=== PATIENT | male | born 1985 | race Caucasian/White ===

== ENCOUNTER 2017-12-28 22:23 | Emergency (ER) | payer MEDICAID ==
[2017-12-28 22:53] LABS: BASO # 0.1 K/uL (0.0-0.2); BASO % 0.7 % (0.0-2.0); EOS # 0.1 K/uL (0.0-0.7); EOS % 0.9 % (0.0-4.0); HEMOGLOBIN 15.8 g/dL (12.0-18.0); LYMPH # 2.3 K/uL (1.0-4.3); LYMPH % 15.2 % (20.0-40.0); MEAN CORPUSCULAR HEMOGLOBIN 29.9 pg (27.0-31.0); MEAN CORPUSCULAR HGB CONC 34.2 g/dL (33.0-37.0); MEAN PLATELET VOLUME 9.5 fL (7.2-11.7); MONO # 0.8 K/uL (0.0-0.8); MONO % 5.3 % (0.0-10.0); NEUT # 11.6 K/uL (1.8-7.0); NEUT % 77.9 % (50.0-75.0); RBC 5.29 Mil/uL (4.40-5.90); RED CELL DISTRIBUTION WIDTH 14.1 % (11.5-14.5)
[2017-12-28 22:54] LABS: WHITE BLOOD COUNT 14.9 K/uL (4.8-10.8)
[2017-12-28 22:55] LABS: MEAN CELL VOLUME 87.5 fL (80.0-94.0)
[2017-12-28 23:05] LABS: ALB/GLOB RATIO 1.1 (1.0-2.1); ALBUMIN 4.5 g/dL (3.5-5.0); ALT/SGPT 321 U/L (21-72); AST/SGOT 137 U/L (17-59); BLOOD UREA NITROGEN 14 mg/dL (9-20); CALCIUM 9.6 mg/dl (8.6-10.4); GFR AFRICAN-AMERICAN > 60; GFR NON-AFRICAN AMERICAN > 60
--- NOTE | 2017-12-28 23:06 | C.PDOC ---
History Of Present Illness 32 year old male, whose PMHx includes seizure disorder, presents to the ED for evaluation after he had two seizure episodes at around 1900 today. Patient states he normally has seizures around once a month. Patient takes 1000mg Keppra BID; he took his most recent dost at 0600 today and has not yet taken his evening dose. Patient states his doctor is in [place] and his seizures have been controlled since he adjusted to the Keppra. His last seizure was 3-4 weeks ago. Patient notes he felt an aura prior to the episodes and was alert and oriented right afterwards. Patient denies tongue bite, urinary/bowel incontinence, extremity numbness/weakness, or any injuries at this time. Time Seen by Provider: 12/28/17 22:41 Chief Complaint (Nursing): Seizure History Per: Patient History/Exam Limitations: no limitations Recent Seizure Activity Began: Hours Ago: (around 4) Number Of Seizures: Multiple (two) Length Of Seizures (Duration): Unknown Precipitating Factor(s): Missed Dose Of Anti-seizure Medication Additional History Per: Patient Past Medical History Reviewed: Historical Data, Nursing Documentation, Vital Signs Vital Signs: Last Vital Signs Temp 98.3 F 12/28/17 22:30 Pulse 82 12/28/17 23:34 Resp 15 12/28/17 23:34 BP 132/85 12/28/17 23:34 Pulse Ox 98 12/28/17 23:34 - Medical History PMH: HTN, Seizures Surgical History: No Surg Hx Family History: States: Diabetes - Social History Hx Tobacco Use: Yes Hx Alcohol Use: No (stopped) Hx Substance Use: No - Immunization History Hx Tetanus Toxoid Vaccination: No Hx Influenza Vaccination: No Hx Pneumococcal Vaccination: No Review Of Systems ENT: Negative for: Other (tongue bite ) Genitourinary: Negative for: Incontinence Neurological: Positive for: Seizures. Negative for: Weakness, Numbness Physical Exam - Physical Exam Appears: Non-toxic, No Acute Distress Skin: Normal Color, Warm, Dry Head: Atraumatic, Normacephalic Eye(s): bilateral: Normal Inspection Oral Mucosa: Moist Neck: Supple Chest: Symmetrical, No Deformity, No Tenderness Cardiovascular: Rhythm Regular, No Murmur Respiratory: Normal Breath Sounds, No Rales, No Rhonchi, No Wheezing Gastrointestinal/Abdominal: Soft, No Tenderness, No Guarding, No Rebound Extremity: Normal ROM, Capillary Refill (less than 2 seconds ) Neurological/Psych: Oriented x3, Normal Speech, Normal Cognition Gait: Steady ED Course And Treatment - Laboratory Results Result Diagrams: 12/28/17 22:51 12/28/17 22:51 Lab Interpretation: No Acute Changes O2 Sat by Pulse Oximetry: 95 (on RA) Pulse Ox Interpretation: Normal Progress Note: Bloodwork and urinalysis ordered and reviewed. IV Fluids administered. Patient given Keppra 1000mg in ED. Reevaluation Time: 23:53 Reassessment Condition: Improved Disposition Counseled Patient/Family Regarding: Studies Performed, Diagnosis, Need For Followup - Disposition Referrals: [facility] [Outside] Disposition: HOME/ ROUTINE Disposition Time: 23:53 Condition: STABLE Instructions: Seizures, Adult (DC) Forms: [employer] (Sinhala) Print Language: [id number] - Clinical Impression Clinical Impression: Seizure disorder - Scribe Statement The provider has reviewed the documentation as recorded by the Scribe Provider Attestation: All medical record entries made by the Scribe were at my direction and personally dictated by me. I have reviewed the chart and agree that the record accurately reflects my personal performance of the history, physical exam, medical decision making, and the department course for this patient. I have also personally directed, reviewed, and agree with the discharge instructions and disposition.
[2017-12-28] MEDS ORDERED: Sodium Chloride 0.9% 1,000 ML IV ONE (23:07)
[2017-12-28] MEDS ORDERED: levETIRAcetam 100 mg/ml (5ml) Oral Syringe PO STA (23:12)
[2017-12-28] MEDS ORDERED: Sodium Chloride 0.9% 1,000 ML ONE (23:15)
[2017-12-28 23:28] LABS: SQUAMOUS EPITHIAL 1 /hpf (0-5); URINE BACTERIA OCC (<OCC); URINE BILIRUBIN NEGATIVE (NEGATIVE); URINE CLARITY Hazy (Clear); URINE COLOR Yellow (YELLOW); URINE GLUCOSE (UA) NORMAL (Normal); URINE LEUKOCYTE ESTERASE NEG Leu/uL (Negative); URINE PROTEIN NEGATIVE (NEGATIVE); URINE UROBILINOGEN NORMAL mg/dL (0.2-1.0)
[2017-12-28 23:29] LABS: URINE BLOOD TRACE (NEGATIVE)
[2017-12-28 23:35] LABS: BARBITURATES, UR NEGATIVE (NEGATIVE); BENZODIAZEPINES, UR NEGATIVE (NEGATIVE); OPIATES, UR NEGATIVE (NEGATIVE); PHENCYCLIDINE, UR NEGATIVE (NEGATIVE)
[2017-12-29 00:01] VITALS: BP 124/77; PULSE 90; RESP 20; TEMP 98.4; O2SAT 98
== END 2017-12-29 00:01 | disposition home or self-care (01) ==
LOC: C.ER 22:23
DX: G40.909 Epilepsy, unspecified, not intractable, without status epilepticus (principal); I10 Essential (primary) hypertension; F17.210 Nicotine dependence, cigarettes, uncomplicated
CPT/HCPCS: 80053; 81001; 82948; 85025; 96360; 99285; G0480; J7040